=== PATIENT | female | born 1970 | race Caucasian/White ===

== ENCOUNTER 2016-12-21 11:18 | Emergency (ER) | payer BC, MEDICAID ==
--- NOTE | 2016-12-21 11:36 | EDM.PDOC ---
ED HPI NEURO - General Chief Complaint: Neuro Symptoms/Deficits Stated Complaint: STROKE SYMPTOMS Time Seen by Provider: 12/21/16 11:25 Source of Information: Reports: Patient History Limitations: Reports: No limitations - History of Present Illness INITIAL COMMENTS - FREE TEXT/NARRATIVE: Patient is a 46-year-old female who presents to the ED complaining of left arm and leg weakness. Patient states she has a history of stroke approximately one year ago that left her with difficulty swallowing. States this past Tuesday symptoms started and have progressively gotten worse throughout the course of the weekend. She is able to move her left lower and upper extremities. She's noticed some mild difficulty walking. In addition with onset of weakness she had a headache located to the left side of her head. States she is experiencing sensitivity to light and noise. Denies any vision changes. Denies any increased difficulty swallowing or worsening slurred speech. Denies any chest pain, shortness of breath, nausea/vomiting, abdominal pain, recent trauma, fever/chills, changes in medications, or any additional complaints. Patient does not know what medication she is on at this point. She does have her young daughter with and does not have any body to watch her. We will get social science professor involved if patient needs to be transferred. Patient states workup for stroke was conducted in [place]. Dr. Rivera Neurologist is the provider she was seeing last. Patient moved here one month ago nd has not established care. She has not seen her neurologist for almost 6 months. Patient states she had a stroke affecting her speech and swallowing. States she had 12 TIAs while . Cause was undetermined. She has a history of hypercholesteremia and is on atorvastatin. She takes aspirin 81 mg daily. Stool softener. Amitriptyline for headaches. She denies any history of chronic migraines. States the headache persisted after the stroke. Only surgical history is . Timing/Duration: Reports: Constant Location (Neuro Complaint): Reports: upper extremity, left (Weakness), lower extremity, left (Weakness), other (headache to the left side of the head rated a 6/10.) Quality (Neuro Complaint): Reports: weakness, altered gait, altered speech. Denies: numbness, tingling Severity: moderate Improves with: Reports: None Worsens with: Reports: None Context, General: Reports: Other. Denies: Activity, Exercise, Lifting, Sick contact, Trauma Associated Symptoms: Reports: weakness. Denies: seizure, shortness of breath, syncope, chest pain, fever/chills, diaphoresis, loss of appetite, nausea/ vomiting Treatments ELDERLY SITTER: Reports: NSAIDS - Related Data Allergies/ADRs: Allergies Allergy/AdvReac Type Severity Reaction Status Date / Time azithromycin Allergy Cannot Verified 12/21/16 15:16 Remember erythromycin base Allergy Vomiting Verified 12/21/16 15:16 Home Meds: Home Meds Albuterol. 1 puff INH ASDIRECTED PRN 10/18/14 [History] Iron. 1 tab PO DAILY 10/18/14 [History] Vitamins. 1 tab PO DAILY 10/18/14 [History] Social & Family History - Tobacco Use Smoking Status *Q: Never Smoker Second Hand Smoke Exposure: No - Alcohol Use Days Per Week of Alcohol Use: 0 - Recreational Drug Use Recreational Drug Use: No ED ROS GENERAL - Review of Systems Review Of Systems: See Below Constitutional: Reports: no symptoms HEENT: Denies: Vision change Respiratory: Denies: Shortness of Breath, Cough, Sputum Cardiovascular: Denies: Chest pain, Dyspnea on exertion, Lightheadedness, Palpitations, Syncope GI/Abdominal: Denies: Abdominal pain, Constipation, Diarrhea, Nausea, Vomiting Musculoskeletal: Denies: neck pain, back pain Neurological: Reports: Headache, Pre-Existing Deficit (Difficulty swallowing, negative for weakness or slurred speech,), Weakness. Denies: Dizziness, Numbness, Tingling ED EXAM, NEURO - Physical Exam Exam: See Below Exam Limited By: No limitations General Appearance: alert, WD/WN, no apparent distress Eye Exam: bilateral eye: EOMI, PERRL Ears: hearing grossly normal Nose: normal inspection Throat/Mouth: No airway compromise. No: Normal voice (minimal slurred speech), Dysphagia Head Exam: atraumatic, normocephalic Neck: normal inspection, supple, non-tender, full range of motion. No: carotid bruit, lymphadenopathy (L), lymphadenopathy (R) Respiratory/Chest: no respiratory distress, lungs clear, normal breath sounds, no accessory muscle use, chest non-tender Cardiovascular: normal peripheral pulses, regular rate, rhythm, no edema, no murmur GI/Abdominal: normal bowel sounds, soft, non tender, no organomegaly, no distention Neurological: alert, normal mood/affect, normal dorsiflexion (right), CN II-XII intact, normal plantar flexion (right), no motor/sensory deficits (no sensory deficits noted. ), oriented x 3, other (Upper extremities strenght: 3/5 left 5/ 5 right.... Lower extremities strenght 3/5 left 5/5 right. cerebellar function intact. Negative facial droop or pronator drift. ) Back Exam: normal inspection Extremities: normal inspection, normal range of motion, non-tender, no pedal edema Psychiatric: normal affect, normal mood Skin Exam: Warm, Dry, Intact, Normal color Course - Vital Signs Last Recorded V/S: Last Vital Signs Temp 97.8 F 12/21/16 12:50 Pulse 90 12/21/16 12:50 Resp 18 12/21/16 12:50 BP 150/89 H 12/21/16 12:50 Pulse Ox 96 12/21/16 12:50 - Orders/Labs/Meds Orders: Active Orders 24 hr Category Date Time Status EKG Documentation Completion [RC] STAT Care 12/21/16 11:34 Active Labs: Laboratory Tests 12/21/16 12/21/16 12/21/16 Range/Units 12:23 12:40 12:40 WBC 8.24 (3.98-10.04) K/mm3 RBC 4.58 (3.98-5.22) M/mm3 Hgb 12.0 (11.2-15.7) gm/L Hct 38.3 (34.1-44.9) % MCV 83.6 (79.4-94.8) fl MCH 26.2 (25.6-32.2) pg MCHC 31.3 L (32.2-35.5) g/dl RDW Std Deviation 54.4 H (36.4-46.3) fL Plt Count 262 (182-369) K/mm3 MPV 10.3 (9.4-12.3) fl Neut % (Auto) 65.3 (34.0-71.1) % Lymph % (Auto) 20.1 (19.3-51.7) % [place] % (Auto) 12.1 (4.7-12.5) % Eos % (Auto) 1.9 (0.7-5.8) Baso % (Auto) 0.5 (0.1-1.2) % Neut # (Auto) 5.37 (1.56-6.13) K/mm3 Lymph # (Auto) 1.66 (1.18-3.74) K/mm3 [place]son # (Auto) 1.00 H (0.24-0.36) K/mm3 Eos # (Auto) 0.16 (0.04-0.36) K/mm3 Baso # (Auto) 0.04 (0.01-0.08) K/mm3 PT 11.3 (8.0-13.0) SECONDS INR 1.03 APTT (22-36) SECONDS Sodium (136-145) mEq/L Potassium (3.5-5.1) mEq/L Chloride (98-107) mEq/L Carbon Dioxide (21-32) mEq/L Anion Gap (5-15) BUN (7-18) mg/dL Creatinine (0.55-1.02) mg/dL Est Cr Clr Drug Dosing Estimated GFR (MDRD) (>60) mL/min BUN/Creatinine Ratio (14-18) Glucose (74-106) mg/dL Calcium (8.5-10.1) mg/dL Total Bilirubin (0.2-1.0) mg/dL AST (15-37) U/L ALT (14-59) U/L Alkaline Phosphatase (46-116) U/L Troponin I (0.00-0.056) ng/mL C-Reactive Protein (<1.0) mg/dL Total Protein (6.4-8.2) g/dl Albumin (3.4-5.0) g/dl Globulin gm/dL Albumin/Globulin Ratio (1-2) TSH 3rd Generation (0.358-3.74) uIU/mL HCG, Qual (NEGATIVE) Urine Color Light yellow (Yellow) Urine Appearance Clear (Clear) Urine pH 6.0 (5.0-8.0) Ur Specific [place] 1.015 (1.005-1.030) Urine Protein Negative (Negative) Urine Glucose (UA) Negative (Negative) Urine Ketones Negative (Negative) Urine Occult Blood Negative (Negative) Urine Nitrite Negative (Negative) Urine Bilirubin Negative (Negative) Urine Urobilinogen 0.2 (0.2-1.0) Ur Leukocyte Esterase Negative (Negative) Urine RBC Not seen (0-5) /hpf Urine WBC 0-5 (0-5) /hpf Ur Epithelial Cells Not seen (0-5) /hpf Urine Bacteria Not seen (FEW) /hpf Urine Mucus Not seen (FEW) /hpf 12/21/16 12/21/16 12/21/16 Range/Units 12:40 12:40 12:40 WBC (3.98-10.04) K/mm3 RBC (3.98-5.22) M/mm3 Hgb (11.2-15.7) gm/L Hct (34.1-44.9) % MCV (79.4-94.8) fl MCH (25.6-32.2) pg MCHC (32.2-35.5) g/dl RDW Std Deviation (36.4-46.3) fL Plt Count (182-369) K/mm3 MPV (9.4-12.3) fl Neut % (Auto) (34.0-71.1) % Lymph % (Auto) (19.3-51.7) % [place] % (Auto) (4.7-12.5) % Eos % (Auto) (0.7-5.8) Baso % (Auto) (0.1-1.2) % Neut # (Auto) (1.56-6.13) K/mm3 Lymph # (Auto) (1.18-3.74) K/mm3 [place] # (Auto) (0.24-0.36) K/mm3 Eos # (Auto) (0.04-0.36) K/mm3 Baso # (Auto) (0.01-0.08) K/mm3 PT (8.0-13.0) SECONDS INR APTT 28 (22-36) SECONDS Sodium 140 (136-145) mEq/L Potassium 4.1 (3.5-5.1) mEq/L Chloride 103 (98-107) mEq/L Carbon Dioxide 27 (21-32) mEq/L Anion Gap 14.1 (5-15) BUN 13 (7-18) mg/dL Creatinine 0.8 (0.55-1.02) mg/dL Est Cr Clr Drug Dosing TNP Estimated GFR (MDRD) > 60 (>60) mL/min BUN/Creatinine Ratio 16.3 (14-18) Glucose 97 (74-106) mg/dL Calcium 9.0 (8.5-10.1) mg/dL Total Bilirubin 0.3 (0.2-1.0) mg/dL AST 16 (15-37) U/L ALT 22 (14-59) U/L Alkaline Phosphatase 133 H (46-116) U/L Troponin I < 0.017 (0.00-0.056) ng/mL C-Reactive Protein 0.5 (<1.0) mg/dL Total Protein 8.0 (6.4-8.2) g/dl Albumin 4.0 (3.4-5.0) g/dl Globulin 4.0 gm/dL Albumin/Globulin Ratio 1.0 (1-2) TSH 3rd Generation 3.625 (0.358-3.74) uIU/mL HCG, Qual Negative (NEGATIVE) Urine Color (Yellow) Urine Appearance (Clear) Urine pH (5.0-8.0) Ur Specific [place] (1.005-1.030) Urine Protein (Negative) Urine Glucose (UA) (Negative) Urine Ketones (Negative) Urine Occult Blood (Negative) Urine Nitrite (Negative) Urine Bilirubin (Negative) Urine Urobilinogen (0.2-1.0) Ur Leukocyte Esterase (Negative) Urine RBC (0-5) /hpf Urine WBC (0-5) /hpf Ur Epithelial Cells (0-5) /hpf Urine Bacteria (FEW) /hpf Urine Mucus (FEW) /hpf Meds: Medications Discontinued Medications Generic Name Dose Route Start Last Admin Trade Name Freq PRN Reason Stop Dose Admin Sodium Chloride 1,000 mls @ 75 mls/hr 12/21/16 11:45 Normal Saline IV ASDIRECTED [facility] - Re-Assessments/Exams Free Text/Narrative Re-Assessment/Exam: 12/21/16 11:36 order peripheral IV with normal saline 75 mL per hour, CBC, chem 14, troponin, CRP, PT/INR, PTT, hCG, UA with micro, chest x-ray, EKG, CT of the head without contrast. CT of the head without contrast did not elicit any intracranial hemorrhage. Ordered MRI of the brain with and without contrast. EKG sinus rhythm at a rate of [address] changes noted. Chest x-ray did not reveal any acute abnormalities. MRI impression: No acute effusion abnormalities are seen. Several small areas of increasing the within the subcortical white matter which can be seen from multiple etiologies including chronic migraines. MRI study of the brain is otherwise unremarkable. Reassessment 1308: Headache is mild with no changes noted. Weakness the left upper and lower extremities persists. No new changes. Blood pressure 125/102, heart rate 75, respirations 21, SpO2 100%. 12/21/16 13:26 Awaiting results of labs. EMR system was down for 40 minutes. Reviewed labs: Essentially normal. 12/21/16 14:10 Nursing staff has contacted the hospital/facility of patients previous Neurologists in [place]. Neurologist is out of town. Message was left for her nurse. Recent neurology clinic visits are being faxed. 12/21/16 14:[address] Costello. Does not believe neuropsych consult to be appropriate at this point. Suggest follow up with a psychologist here locally for conversion disorder. I'm attempting to arrange psychiatric evaluation by Agueda ELLISON here locally. Appointment with Idalmis ELLISON was arranged for 12/24/16 at 1530. Reviewed appointment with Rose gutierres nurse practitioner for neurology clinic dated May 12, 2016. Patient was seen on follow for TIA which was reported to the CVA . Record review does not indicate acute stroke in March although there is potentially an old infarct seen on imaging. Exam normal. Patient did complain of memory loss and is getting lost driving. She requested neuropsych evaluation for dementia via pseudodementia and recommendations for mental work capacity. MRI of the brain obtain December 20, 2014 impression no intracranial Mass, hemorrhage or evidence of acute infarction. Solitary increase focus of increased T2 signal intensity recurrent radiate is likely a limited clinical significance. Carotid duplex bilateral obtain December 19, 2014 impression: No evidence of significant arterial occlusive disease in the internal carotid arteries. No significant stenosis in the external carotid arteries bilaterally. Antegrade flow in both vertebral arteries. Normal flow in both subclavian arteries. Departure - Departure Time of Disposition: 16:00 Disposition: Home, Self-Care 01 Condition: good Clinical Impression: Left-sided muscle weakness Instructions: Weakness Referrals: PCP,Unknown [Primary Care Provider] - Larisa Lazcano CARTO[employer] ARTIST [Nurse Practitioner] - Benjamin Schmidt [Physician] - Forms: ED Department Discharge Additional Instructions: As discussed although you have left-sided weakness CT and MRI of the brain did not elicit any findings concerning for stroke. I spoke with Dr. Kowalski her neurologist at [facility] and [place]. He does not bleeding ED see a neurologist on followup but recommends psychiatric evaluation with her known history of anxiety, depression, and dementia/pseudodementia. We have scheduled an appoitment with Idalmis ELLISON for Tuesday the 24 of December at 3:30 P.M. Also will have you make an appointment with Dr. Marion PCP at [facility] for initial appointment for further evaluation and treatment. Continue taking all medications as prescribed. Return to the E.D. for any new or worsening symptoms. - My Orders Last 24 Hours: My Active Orders 12/21/16 11:34 EKG Documentation Completion [RC] STAT - Assessment/Plan Last 24 Hours: My Active Orders 12/21/16 11:34 EKG Documentation Completion [RC] STAT
[2016-12-21] MEDS ORDERED: Sodium Chloride 0.9% 1,000 ML IV SCH (11:45)
--- NOTE | 2016-12-21 11:46 | CT ---
Head CT Technique: Multiple axial sections through the brain were obtained. Intravenous contrast was not utilized. Comparison: No previous intracranial imaging. Findings: Ventricles along with basal cisterns and sulci over the convexities are within normal limits for the patient's age. No abnormal parenchymal densities are seen. No evidence of intracranial hemorrhage. No midline shift or mass effect is seen. Bone window settings were reviewed which shows the visualized sinuses to appear clear. No acute calvarial abnormality is seen. Impression: 1. No acute intracranial abnormality is identified. If patient's symptoms warrant further evaluation, MRI study could then be considered. Diagnostic code #1
--- NOTE | 2016-12-21 12:51 | MR ---
MRI brain Technique: T1 sagittal; T2, T2 FLAIR, diffusion and T1 axial; T2 FLAIR sagittal; T1 FLAIR coronal images were obtained through the brain. Comparison: Previous head CT study performed earlier on same day. Findings: Ventricles along with basal cisterns and sulci over the convexities are within normal limits. Several areas of increased signal are seen within the subcortical white matter. No other abnormal signal is seen within the brain parenchyma. No midline shift or mass effect is. No acute diffusion abnormalities are seen. Normal signal void is seen within the major cerebral arteries within the skull base. Impression: 1. No acute diffusion abnormalities are seen. 2. Several small areas of increased signal within the subcortical white matter which can be seen from multiple etiologies including chronic migraines. 3. MRI study of the brain is otherwise unremarkable. Diagnostic code #2
--- NOTE | 2016-12-21 13:04 | CR ---
Chest: Two views of the chest were obtained. Comparison: No previous chest x-ray. Heart size and mediastinum are within normal limits. Mild scoliosis is present within the spine. Lungs are clear with no acute infiltrates. Impression: 1. Nothing acute is seen on two-view chest x-ray. Diagnostic code #1
[2016-12-21 14:24] VITALS: BP 150/89
== END 2016-12-21 16:00 | disposition home or self-care (01) ==
LOC: JD.ED 11:18
DX: M62.81 Muscle weakness (generalized) (principal); R51 Headache; Z88.1 Allergy status to other antibiotic agents
CPT/HCPCS: 36415; 70450; 70450-26; 70551; 70551-26; 71020; 71020-26; 80053; 81001; 84443; 84484; 84703; 85025; 85610; 85730; 86140; 93005; 99284; 99285-25